=== PATIENT | male | born 1965 | race Caucasian/White ===

== ENCOUNTER 2021-12-03 03:06 | Outpatient (CLI) | payer OTHER, SELFPAY ==
[2021-12-03 08:03] LABS: HCT 43.4 % (40.0-50.0); HGB 14.4 g/dL (13.5-17.5); MCH 28.7 pg (27.0-33.0); MCHC 33.2 % (32.0-36.0); MCV 86.5 fL (80-95); Platelet Count 188 10^3/uL (130-400); RBC 5.02 10^6/uL (4.36-5.78); RDW 12.6 % (11.8-14.1); RDW-SD 40.1 fL; WBC 6.16 10^3/uL (4.4-10.8)
[2021-12-03 09:17] LABS: ALT 18 U/L (16-63); AST 13 U/L (15-37); Alkaline Phosphatase 119 U/L (46-116); BUN 21 mg/dL (7-18); Bilirubin, Total 0.5 mg/dL (0.2-1.0); Calculated LDL 107 mg/dL (<100); Chloride 105 mmol/L (98-107); Cholesterol 170 mg/dL (<200); Glucose 86 mg/dL (74-106); HDL Cholesterol 49 mg/dL (40-60); Magnesium 2.1 mg/dL (1.8-2.4); Potassium 3.9 mmol/L (3.5-5.1); Sodium 142 mmol/L (136-145); TSH (W/Ref FT4) 2.38 uIU/mL (0.36-3.74); Total Protein 7.5 g/dL (6.4-8.2); Triglyceride 72 mg/dL (<150)
[2021-12-03 21:45] LABS: PSA, Screening 0.7 ng/mL (<=3.5)
== END 2021-12-03 03:07 | disposition home or self-care (01) ==
LOC: LBO 03:06
PROVIDERS: PCP Nurse Practitioner; Visit Provider Family Medicine
DX: I10 Essential (primary) hypertension (principal); R00.2 Palpitations; G81.94 Hemiplegia, unspecified affecting left nondominant side; Z13.6 Encounter for screening for cardiovascular disorders; Z12.5 Encounter for screening for malignant neoplasm of prostate
CPT/HCPCS: 36415; 80053; 80061; 84153; 85027; 83735; 84443

== ENCOUNTER 2022-10-16 09:26 | Outpatient (RCR) | payer OTHER, SELFPAY ==
--- NOTE | 2022-10-16 09:30 | HOLTER_ITS ---
APPROVED REPORT Conclusion This is a 48-hour Holter monitor ordered for bradycardia Rhythm throughout was sinus with an average heart rate of 56. Minimum was 44, maximum 139 There were very rare isolated atrial and ventricular ectopic beats There was no atrial fibrillation, no SVT, no high-grade AV block, no pauses greater than 3 seconds
== END 2022-11-13 23:59 | disposition home or self-care (01) ==
LOC: CARDOPNVT 09:26
PROVIDERS: PCP Nurse Practitioner Family; Visit Provider Surgery
DX: R00.1 Bradycardia, unspecified (principal)
CPT/HCPCS: 93225; 93226

== ENCOUNTER 2022-11-06 10:16 | Day surgery (SDC) | payer OTHER, SELFPAY ==
--- NOTE | 2022-11-05 22:04 | PDOC.DSDIS_ITS ---
Date of service: 11/06/22 Time of Service: 13:27 Discharge Plan Disposition Patient Disposition: Home Condition: Good Discharge Details Reason For Visit: Screening colonoscopy Attending Provider: Edd Caldwell Primary Care Provider: Malka Owens Home Meds and New Rx's Prescriptions: Continued magnesium 250 mg tablet 250 mg PO DAILY Qty: 1 0RF Eye Vitamin and Minerals 1 EACH tablet 1 tab PO DAILY Discontinued polyethylene glycol 3350 17 gram/dose powder 238 g PO ONCE Qty: 238 0RF Rx Instructions: take per colonoscopy instructions bisacodyl [Dulcolax (bisacodyl)] 5 mg tablet,delayed release (DR/EC) 5 mg PO ONCE Qty: 4 0RF Rx Instructions: take per colonoscopy instructions Discharge Instructions Additional Instructions: Gerardo, I was able to complete the colonscopy today without any difficulty. The quality of the prep was excellent. I did not see any abnormlaities. Please consider another colonoscopy in 10 years. 1. If tolerated, consume a soft, low fiber diet for 1-2 days. 2. Do not drive, drink alcohol, operate machinery, make critical decisions, or do activities that require coordination or balance for 24 hours. 3. Because air was put into your colon during the procedure, expelling air from your rectum (passing gas or farting) is normal. 4. You may not have a bowel movement for 1-3 days because of the colonoscopy prep. This is normal. 5. Go directly to the emergency room if you notice any of the following: Develop chills (warm to touch), or if you have a thermometer and your temperature is above 101 Difficulty breathing or difficultly swallowing Persistent vomiting Severe abdominal pain, other than gas cramps Severe chest pain Black, tarry stools Any bleeding ? exceeding one tablespoon 6. Call your physician if the site where your intravenous was started becomes red, swollen, painful, and warm to touch. 7. Your physician has reviewed your pre-procedure medications. Please continue t o take those medications as previously ordered. You will be given specific information/education regarding any changes to your medications before leaving. Activity:: Activity as Tolerated Diet:: As Tolerated Discharge Orders Discharge Orders: Discharge Order (Routine); Ordered 11/05/22 Ordered By: Edd Caldwell DS: Diagnosis Discharge Diagnosis (1) Screening for colon cancer: Status: Acute Asessment and Plan: Normal colonoscopy today. Next screening colonoscopy in 10 years
--- NOTE | 2022-11-05 22:06 | W.PM.OP ---
Date of service: 11/06/22 Time of Service: 13:29 Operative Note Operative Note DATE OF PROCEDURE: 11/06/22 PRE-OP DIAGNOSIS: Screening colonoscopy Refer to Anesthesia Record
[2022-11-06 10:45] VITALS: BP 136/93; PULSE 55; RESP 18; TEMP 36.4; O2SAT 98
[2022-11-06] MEDS: Lactated Ringers 1,000 ML 80 ML IV (11:20)
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
[2022-11-06 13:30] VITALS: BP 109/61; PULSE 73; RESP 16; TEMP 36.2; O2SAT 97
--- NOTE | 2022-11-06 13:30 | W.COLOREPORT ---
Date of service: 11/06/22 Time of Service: 13:30 Colonoscopy Report Date of procedure: 11/06/22 Pre-op diagnosis general: Screening colonoscopy Post-op diagnosis procedure note: same Procedure: Colonoscopy Surgeon: Edd Caldwell Anesthesia Type: General:No Airway Estimated blood loss (mL): 0 Pathology: none sent Complications: None Disposition: same day Indications: Gerardo is a 57 year old man here for his first screening colonoscopy Prep: Miralax/Dulcolax Procedure Start Time: 13:00 Procedure End Time: 13:17 Retraction Time: 10 Findings: Normal colonoscopy Procedure Description: After the induction of monitored anesthetic care, and with the patient in left lateral decubitus position, I began by performing an external anorectal exam.? Perineum and skin were normal, as was the anal verge.? There was no evidence of external hemorrhoids.? Next, I performed a digital rectal exam.? I did not appreciate any abnormal findings.? Next, I advanced a colonoscope into the rectal vault.? I performed retroflexion.? This appeared normal.? Using insufflation, I then advanced the colonoscope beyond the rectal folds and into the sigmoid colon before advancing towards the cecum.? The quality of the prep was excellent.? The scope was noted to be in the cecum by identification of the ileocecal valve and appendiceal orifice.? I then began withdrawing the colonoscope using repeated irrigation as necessary for full evaluation of the colonic mucosa. ?Once the scope was withdrawn to the level of the rectum, great care was taken to examine portions of the rectal folds.?I did not see any evidence of tumors or polyps. Finally, the scope was withdrawn and the patient was brought to the same-day surgery recovery unit as the anesthetic wore off. ?The findings and instructions were shared with the patient prior to discharge.
[2022-11-06 13:32] VITALS: BMI 22.0
[2022-11-06 14:05] VITALS: BP 126/77; PULSE 52; RESP 16; TEMP 36.4; O2SAT 97
--- NOTE | 2022-11-06 15:44 | W.ANESPOSTOP ---
Postoperative Evaluation Date, Time and Location Date Performed: 11/06/22 Time Performed: 15:44 Patient Location: Day Surgery Unit Vital Signs Most Recent Imported Vital Signs: Most Recent Vital Signs Temp Pulse Resp BP Pulse Ox 36.4 C L 52 L 16 126/77 97 11/06/22 14:05 11/06/22 14:05 11/06/22 14:05 11/06/22 14:05 11/06/22 14:05 Pain Score Most Recent Pain Score: Most Recent Pain Score Pain Level 0 11/06/22 14:05 Assessment Mental Status: Awake (Alert & Oriented to Patient Baseline) Airway and Respiratory Function: Patent airway with normal (patient baseline) respiratory exam Cardiovascular Function: Hemodynamically Stable Hydration Status: Adequately Hydrated Nausea & Vomiting: No Nausea or Vomiting Pain: Pt. Denies Any Pain Peripheral Nerve Block: Patient did not receive a nerve block Postoperative Comments:: Seen earlier today, all questions answered and doing well.
== END 2022-11-06 14:22 | disposition home or self-care (01) ==
PROVIDERS: PCP Nurse Practitioner Family; Visit Provider Surgery
PROC: 0DJD8ZZ Inspection of Lower Intestinal Tract, Via Natural or Artificial Opening Endoscopic (ICD-10-PCS; CPT 45378; principal; 2022-11-06 11:30)
DX: Z12.11 Encounter for screening for malignant neoplasm of colon (principal)
CPT/HCPCS: 45378

== ENCOUNTER 2024-03-03 01:08 | Outpatient (CLI) | payer OTHER, SELFPAY ==
--- OUTSIDE RECORDS SUMMARY | 2024-03-03 01:12 | XMS_ITS | Encounter Summary ---
Author Organization [facility] Address [facility] [place] [address] Care Team Providers Care Internet Designer Name Role Phone Barron Varma DO Primary Care Provider Encounter Details Date Type Department Care Team (Late st Contact Info) Description 10/12/2016 Ancillary Procedure [place] [id number] Barron Varma DO [address] [place] [address] Social History Tobacco Use Types Packs/Day Years Used Date Smoking Tobacco: Never Assessed Sex and Gender Information Value Date Recorded Sex Assigned at Not on file Gender Identity Not on file Sexual Orientation Not on file documented as of this encounter Plan of Treatment Not on file documented as of this encounter Procedures Procedure Name Priority Date/Time Associated Diagnosis Comments FILM LIBRARY STORAGE ONLY DX WRIST Routine 10/12/2016 12:00 AM EST documented in this encounter Results * Film Library- Storage Only DX Wrist (10/12/2016 12:00 AM EST) Narrative KOURTNEY - 11/01/2018 10:30 AM EDT This exam is auto-finalizing. It's purpose is for storage only. Barron Varma DO IMG FILM LIBRARY ORD ERABLES [place], [place] documented in this encounter Visit Diagnoses Not on filedocumented in this encounter Care Teams Internet Designer Relationship Specialty Start Date End Date Barron Varma DO [address] [place] [address] PCP - General 07/08/10 12/23/22 documented as of this encounter
--- OUTSIDE RECORDS SUMMARY | 2024-03-03 01:12 | XMS_ITS | Encounter Summary ---
Author Organization [facility] [place] [address] Care Team Providers Care Clinical Education Manager Name Role Phone Barron Varma DO Primary Care Provider Encounter Details Date Type Department Care Team (Late st Contact Info) Description 02/02/2018 Ancillary Procedure [place] [phone] Barron Varma DO [address] [place] [address] Social History Tobacco Use Types Packs/Day Years [...] FILM LIBRARY STORAGE ONLY DX WRIST Routine 02/02/2018 12:00 AM EDT documented in this encounter Results * Film Library- Storage Only DX Wrist (02/02/2018 12:00 AM EDT) Narrative KOURTNEY - 11/01/2018 10:31 AM EDT This exam is auto-finalizing. It's purpose is for storage only. Barron Varma DO IMG FILM LIBRARY ORD ERABLES [place], [place] documented in this encounter Visit Diagnoses Not on filedocumented in this encounter Care Teams Clinical Education Manager Relationship Specialty Start Date End Date Barron aVrma DO [address] [place] [address] PCP - General 07/08/10 12/23/22 documented as of this encounter
--- OUTSIDE RECORDS SUMMARY | 2024-03-03 01:12 | XMS_ITS | Encounter Summary ---
Author Organization [facility] [place] [address] Care Team Providers Care Ticket Chopper Assembler Name Role Phone Barron Varma DO Primary Care Provider [phone] Encounter Details Date Type Department Care Team (Late st Contact Info) Description 02/02/2018 12:05 AM EDT Ancillary Procedure [place] [phone] Barron Varma DO [address] [place] [address] Social History Tobacco Use Types Packs/Day Years [...] Diagnosis Comments FILM LIBRARY STORAGE ONLY DX HAND Routine 02/02/2018 12:05 AM EDT documented in this encounter Results * Film Library- Storage Only DX Hand (02/02/2018 12:05 AM EDT) Narrative KOURTNEY - 11/01/2018 10:32 AM EDT This exam is auto-finalizing. It's purpose is for storage only. Barron Varma DO IMG FILM LIBRARY ORD ERABLES [place], [place] documented in this encounter Visit Diagnoses Not on filedocumented in this encounter Care Teams Ticket Chopper Assembler Relationship Specialty Start Date End Date Barron Varma DO [address] [place] [address] PCP - General 07/08/10 12/23/22 documented as of this encounter
--- OUTSIDE RECORDS SUMMARY | 2024-03-03 01:12 | XMS_ITS | Encounter Summary ---
Author Organization [facility] [place] [address] Care Team Providers Care Research/Program Director Name Role Phone Malka Owens APRN Primary Care Provider [phone] Reason for Referral * Consultation (Routine) - Canceled Specialty Diagnoses / Procedures Referred By Cait t Referred To Contact Dermatology Diagnoses Viral warts, unspecified type Malka Owens APRN [address] [place] [address] [facility] Dermatology [address] [place] [address] Referral ID Status Reason Start Date Expiration Date Visits Requested Visits Authorized [id number] Canceled Consult, Test & Treat PCP Updated and/or Approved 12/28/2022 12/28/2023 6 6 Encounter Details Date Type Department Care Team (Late st Contact Info) Description 12/28/2022 Transcribe Orders eDH Incoming Referrals [phone] Malka Owens APRN [address] [place] [address] Viral warts, unspecified type Social History Tobacco Use Types Packs/Day Years Used Date Smoking Tobacco: Never Smokeless Tobacco: Never Alcohol Use Standard Drinks/Week Comments Yes 0 (1 standard drink = 0.6 oz pur e alcohol) 12 pack a year Sex and Gender Information Value Date Recorded Sex Assigned at Not on file Gender Identity Not on file Sexual Orientation Not on file documented as of this encounter Plan of Treatment Scheduled Referrals Name Type Priority Associated Diagnoses Orde r Schedule Referral to Dermatology Outpatient Referral Routine Viral warts, unspecified type Ordered: 12/28/2022 documented as of this encounter Visit Diagnoses Diagnosis Viral warts, unspecified type documented in this encounter Care Teams Research/Program Director Relationship Specialty Start Date End Date Graciela, Malka Bent[place] APRN [address] [facility] [place] [address] PCP - General Internal Medicine 12/24/22 documented as of this encounter
--- OUTSIDE RECORDS SUMMARY | 2024-03-03 01:12 | XMS_ITS | Referral Summary ---
Author Organization [facility] Address [address] [place] [address] Care Team Providers Care Family Consumer Scientist Name Role Phone Unavailable Primary Care Provider Unavailabl e Social History Tobacco Use Types Packs/Day Years Used Date Smoking Tobacco: Never Assessed Sex and Gender Information Value Date Recorded Sex Assigned at Not on file Gender Identity Not on file Sexual Orientation Not on file Plan of Treatment Not on file
--- OUTSIDE RECORDS SUMMARY | 2024-03-03 01:12 | XMS_ITS | Encounter Summary ---
Author Organization [facility] Address [address] [place] [address] Care Team Providers Care Asparagus Buncher Name Role Phone Unavailable Primary Care Provider Unavailabl e Encounter Details Date Type Department Care Team (Late st Contact Info) Description 12/03/2021 Lab Requisition [facility] Pathology & Laboratory Medicine - [facility] [address] [place], [place] [id number] Outr Resulting Lab, Provider Social History Tobacco Use Types Packs/Day Years Used Date Smoking Tobacco: Never Assessed Sex and Gender Information Value Date Recorded Sex Assigned at Not on file Gender Identity Not on file Sexual Orientation Not on file documented as of this encounter Plan of Treatment Not on file documented as of this encounter Procedures Procedure Name Priority Date/Time Associated Diagnosis Comments PSA TOTAL, DIAGNOSTIC Routine 12/03/2021 7:54 EDT documented in this encounter Results * PSA TOTAL, DIAGNOSTIC (12/03/2021 7:54 EDT) PSA 0.7 <=3.5 ng/mL 12/03/2021 21:40 EDT [facility] Blood VENOUS BLOOD / Unknown 12/03/2021 7:54 EDT 12/03/2021 16:35 EDT Narrative [facility] - 12/03/2021 21:40 EDT NOTE: Serum PSA concentration should not be interpreted as absolute evidence for the presence or absence of malignant disease. Assayed on Siemens ADVIA Centaur XPT using chemiluminescent technology.??Values obtained by using different assay methods cannot be used interchangeably. Provider Outr Resulting Lab CHEMISTRY & BLOOD GAS ORDERABLES [facility] [address] [place] [address] documented in this encounter Visit Diagnoses Not on filedocumented in this encounter
--- OUTSIDE RECORDS SUMMARY | 2024-03-03 01:12 | XMS_ITS | Clinical Summary ---
Author Organization [facility] Address [address] [place] [address] Care Team Providers Care Single Ending Machine Operator Name Role Phone Unavailable Primary Care Provider Unavailabl e Social History Tobacco Use Types Packs/Day Years Used Date Smoking Tobacco: Never Assessed Sex and Gender Information Value Date Recorded Sex Assigned at Not on file Gender Identity Not on file Sexual Orientation Not on file Plan of Treatment Health Maintenance Due Date Last Done Comments Hepatitis C Screen 1965 Hepatitis B Vaccine (1 of 3 - 19+ 3-dose series) 05/16 COVID-19 Vaccine (2022-24 season) 2023
--- OUTSIDE RECORDS SUMMARY | 2024-03-03 01:12 | XMS_ITS | Encounter Summary ---
Author Organization [facility] [place] [address] Care Team Providers Care Servomechanism Assembler Name Role Phone Malka Owens APRN Primary Care Provider [phone] Reason for Referral * Consultation (Priority 3) - Closed Specialty Diagnoses / Procedures Referred By Contisiah t Referred To Contact Dermatology Diagnoses Viral warts, unspecified type wart of R hand Malka Owens APRN [address] [place] [address] [facility] Dermatology [address] [place] [address] Referral ID Status Reason Start Date Expiration Date V isits Requested Visits Authorized [id number] Closed Consult, Test & Treat PCP Updated and/or Approved 12/24/2022 12/24/2023 6 6 Encounter Details Date Type Department Care Team (Late st Contact Info) Description 12/24/2022 Transcribe Orders eDH Incoming Referrals [phone] Malka Owens APRN [address] [place] [address] Viral warts, unspecified type Social [...] Referral Routine Viral warts, unspecified type Ordered: 12/24/2022 documented as of this encounter Visit Diagnoses Diagnosis Viral warts, unspecified type documented in this encounter Care Teams Servomechanism Assembler Relationship Specialty Start Date End Date Graciela, Malka [place] APRN [address] [place] [address] PCP - General Internal Medicine 12/24/22 documented as of this encounter
--- OUTSIDE RECORDS SUMMARY | 2024-03-03 01:12 | XMS_ITS | Encounter Summary ---
Author Organization [facility] Address [facility] [address] [address] Care Team Providers Care Engine Setter Name Role Phone Barron Varma DO Primary Care Provider [phone] Encounter Details Date Type Department Care Team (Latest Contact Info) Description 01/04/2019 12:15 PM EDT - 01/04/2019 11:59 PM EDT Hospital Encounter XRay at [address] [place] [address] Fer Golden MD [facility] [place] [address] Right wrist pain Discharge Disposition: Home Social History Tobacco Use Types Packs/Day Years Used Date Smoking Tobacco: Never Smokeless Tobacco: Never Alcohol Use Standard Drinks/Week Comments Yes 0 (1 standard drink = 0.6 oz pur e alcohol) 12 pack a year Sex and Gender Information Value Date Recorded Sex Assigned at Not on file Gender Identity Not on file Sexual Orientation Not on file documented as of this encounter Medications at Time of Discharge Medication Sig Dispensed Refills Start Date End Date vit C/E/Zn/coppr/lutein/zeaxan (PRESERVISION AREDS-2 ORAL) Take by mouth. multivitamin (THERAGRAN) tablet 8 OMEGA-3 FATTY ACIDS-FISH OIL ORAL 08/29/2007 documented as of this encounter Plan of Treatment Not on file documented as of this encounter Procedures Procedure Name Priority Date/Time Associated Diagnosis Comments XR WRIST 3 VIEWS RIGHT Routine 01/04/2019 12:26 PM EDT Right wrist pain documented in this encounter Results * XR Wrist Complete Min 3 views Right (Generic) (01/04/2019 12:26 PM EDT) Anatomical Region Laterality Modality Right Digital Radiogra phy Impressions 01/04/2019 4:00 PM EDT Mild osteoarthritis of the wrist. Thank you for letting us participate in the care of this patient. For questions regarding this report, please contact the number below. ? Electronically signed by: SERGEY Garrett [facility] ([phone]), at 01/04/2019 4:00 PM Narrative 01/04/2019 4:00 PM EDT EXAMINATION: XR WRIST COMPLETE MIN 3 VIEWS RIGHT (GENERIC) CLINICAL HISTORY: chronic right wrist pain TECHNIQUE: PA, oblique, lateral and scaphoid of the right wrist. COMPARISON: None FINDINGS: There is no fracture or dislocation. Small osteophytes are present at the triscaphe joint. There is mild narrowing of the first carpal metacarpal joint. Procedure Note Jose Stephenson MD - 01/04/2019 EXAMINATION: XR WRIST COMPLETE MIN 3 VIEWS RIGHT (GENERIC) CLINICAL HISTORY: chronic right wrist pain TECHNIQUE: PA, oblique, lateral and scaphoid of the right wrist. COMPARISON: None FINDINGS: There is no fracture or dislocation. Small osteophytes are present at the triscaphe joint. There is mildnarrowing of the first carpal metacarpal joint. IMPRESSION Mild osteoarthritis of the wrist. Thank you for letting us participate in the care of this patient. Forquestions regarding this report, please contact the number below. Electronically signed by: SERGEY Garrett [facility]([phone]), at 01/04/2019 4:00 PM Fer Golden MD IMG DX ORDERABLES documented in this encounter Visit Diagnoses Diagnosis Right wrist pain Pain in joint, forearm documented in this encounter Care Teams Engine Setter Relationship Specialty Start Date End Date Barron Varma DO [address] [place] [address] PCP - General 07/08/10 12/23/22 documented as of this encounter
--- OUTSIDE RECORDS SUMMARY | 2024-03-03 01:12 | XMS_ITS | Encounter Summary ---
Author Organization Formerly [facility] Address [facility] [place] [address] Care Team Providers Care Independent Beauty Consultant Name Role Phone Barron Varma DO Primary Care Provider [phone] Reason for Visit * Reason Comments Right Wrist Pain * Consultation (Routine) - Closed Specialty Diagnoses / Procedures Referred By Contisiah t Referred To Contact Orthopaedics Diagnoses RT WRIST PAIN Barron Varma DO [address] [place] [address] Fer Golden MD [facility] [place] [address] Referral ID Status Reason Start Date Expiration Date V isits Requested Visits Authorized [id number] Closed Consult, [facility] & [facility] 11/02/2018 11/02/2019 1 1 Encounter Details Date Type Department Care Team (Late st Contact Info) Description 01/04/2019 2:00 PM EDT Office Visit [place] [address] Fer Golden MD [facility] [place] [address] Pain in right wrist Social History Tobacco Use Types Packs/Day Years Used Date Smoking Tobacco: Never Smokeless Tobacco: Never Alcohol Use Standard Drinks/Week Comments Yes 0 (1 standard drink = 0.6 oz pur e alcohol) 12 pack a year Sex and Gender Information Value Date Recorded Sex Assigned at Not on file Gender Identity Not on file Sexual Orientation Not on file documented as of this encounter Last Filed Vital Signs Vital Sign Reading Time Taken Comments Blood Pressure 145/86 01/04/2019 1:16 PM EDT Pulse 55 01/04/2019 1:16 PM EDT Temperature - - Respiratory Rate - - Oxygen Saturation - - Inhaled Oxygen Concentration - - Weight - - Height - - Body Mass Index - - documented in this encounter Progress Notes * Luis Eduardo Jacobs PA - 01/04/2019 2:00 PM EDT PATIENT NAME: Gerardo Montesinos AGE: 53 y.o. MR#: [id number] DATE OF VISIT: 01/04/2019 DATE OF INJURY/ONSET: 2 years STAFF: Dr. Golden CHIEF COMPLAINT: Right wrist pain HISTORY OF PRESENT ILLNESS: Mr. Montesinos is a right hand dominant 53 y.o. male who comes into clinictoday for evaluation of right wrist pain. This began after a FOOSH 2 years ago in which he fell in a parking lot. Patient was evaluated at [facility] and was not found to have an acute fracture. He subsequently developed pain and stiffness and later underwent what he believes is a synovectomy of the ECU b y Dr. Lynch. He was compliant with attending therapy after this procedure and will take Aleve as needed. The patient has had continued pain that is both dorsal and volar mostly over the STT joint. This is made worse with lifting and rotating movement such as shoveling snow. Mr. Montesinos denies any numbness or tingling. Medications and Allergies were reviewed in eD-[facility] PAST MEDICAL HX: History reviewed. No pertinent past medical history. PAST SURGICAL HX: History reviewed. No pertinent surgical history. SOCIAL HX: Social History Occupational History ??? Not on file Tobacco Use ??? Smoking status: Never Smoker ??? Smokeless tobacco: Never Used Substance and Sexual Activity ??? Alcohol use: Yes Comment: 12 pack a year ??? Drug use: Not Currently ??? 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 General Health, Prior Treatments, PreExisting Condition, Health Habits, About You 01/04/2019 PROMIS-10 General Health Very Good PROMIS-10 Quality of Life Good PROMIS-10 Physical Health Very Good PROMIS-10 Mental Health Good PROMIS-10 Social Activity Good PROMIS-10 Everyday Activities Mostly PROMIS-10 Pain 3 PROMIS-10 Fatigue Mild PROMIS-10 Social Roles Good PROMIS-10 Anxious or Depressed Rarely PROMIS PHYSICAL SCORE (range 16-68) 50.8 PROMIS MENTAL SCORE (range 21-68) 45.8 Treatments Tried Physical therapy, Over the counter anti-inflammatory drugs (e.g Advil, Aspirin, Aleve), Prior surgery for this problem Alzheimers or dementia No Cirrohosis or liver disease No HIV/AIDS No Pain in more than one joint in legs No Back or neck pain No Heart attack No Heart failure No Unclog/bypass leg arteries No Stroke, blood clot, TIA No Asthma No Emphysema, chronic bronchities, or COPD No Stomach ulcers/peptic ulcer disease No Diabetes No Poor kidney function No Rheumatic condtions No Cancer No Weight (lbs) 151 Height (feet) 5 feet Height (Inches) 8 BMI 22.95 (Normal) Ever used tobacco products No Ever used alcoholic beverages Yes Alcohol frequency Once or twice WHO - Alcohol Advice 2 (You are at low risk of health and other problems from your current pattern of use.) Live Alone No Marital situation Single (never ) Schooling 4 - year college # People Supported 2 Peruvian, , No, not Peruvian// Race White Health Literacy Quite a bit Currently working Yes Current job situation Full-time PHYSICAL EXAM: Mr. Montesinos is a 53 y.o. male who is alert, appears stated age and cooperative. Inspection: There is an area of swelling most prominent over the MCP joint of the right long finger. This is not erythematous or warm to touch. Palpation: He has point tenderness over the FCR, the dorsal and volar aspect of the wrist corresponding with the STT joint. ROM/Strength: Wrist flexion-30 degrees Wrist extension- 50 degrees Orthopedic testing: Yost-negative Neurovascular: Sensation and motor function are in tact along the median, ulnar, and radial nerve roots. His hand is well perfused, distal radial pulse 2+. DIAGNOSTIC STUDIES: X-rays from today were personally reviewed and demonstrate basal joint and STT arthritis. There is no evidence of fracture or dislocation. ASSESSMENT: Mr. Montesinos presents with 2 years of right wrist pain after a FOOSH. He underwent synovectomy of what is likely his ECU, but continued to have pain and decreased ROM. On exam, he does have some swelling over the MCP joint of his right long finger that is non-erythematous or warm to touch. His ROM is decreased to 30 flexion and 50 extension. Xrays from today were reviewed and demonstrate both basal joint and STT arthritis. We discussed that he can continue to treat this conservatively with splinting, topicals and occasional Tylenol. He also may like to proceed with a cortisone injection into the STT joint as this is his most prominent area of pain on exam and confirmed with x-rays. Lastly it may be reasonable to obtain an MRI to evaluate further and look for other pathology maybe contributing to his pain. The patient elected to proceed with a fluoroscopy guided cortisone injection of the right wrist over the STT joint with the understanding of the risks including infectionbleeding nerve tendon or vessel injury steroid flare increase in blood sugars, skin discoloration and recurrence of pain. He will be called radiology to have this scheduled. PLAN: Fluoro-guided injection into the STT joint of the right wrist. He will return for follow up if he does get adequate pain relief with a cortisone injection. At this point, he may request gettinga right wrist MRI as we discussed. The patient understands to contact us if they have any other ques tions or concerns. I saw Mr. Montesinos with Dr. Golden who agrees with this plan. The above documentation was completed using [employer] voice recognition software. documented in this encounter Plan of Treatment Not on file documented as of this encounter Visit Diagnoses Diagnosis Pain in right wrist Pain in joint, forearm documented in this encounter Care Teams Independent Beauty Consultant Relationship Specialty Start Date End Date Barron Varma DO [address] [place] [address] PCP - General 07/08/10 12/23/22 documented as of this encounter
--- OUTSIDE RECORDS SUMMARY | 2024-03-03 01:12 | XMS_ITS | Clinical Summary ---
Author Organization Formerly [facility] [place] [address] Care Team Providers Care Statistical Analyst Name Role Phone GracielaMalka APRN Primary Care Provider [phone] Allergies No known active allergies Medications Medication Sig Dispensed Refills Start Date End Date Status multivitamin (THERAGRAN) tablet 08/29/2007 Active OMEGA-3 FATTY ACIDS-FISH OIL ORAL 08/29/2007 Active vit C/E/Zn/coppr/lutein/zeaxa n (PRESERVISION AREDS-2 ORAL) Take by mouth. Active Active Problems No known active problems Immunizations Name Administration Dates Next Due TD Adult 03/07/2004 Social History Tobacco Use Types Packs/Day Years Used Date Smoking Tobacco: Never Smokeless Tobacco: Never Alcohol Use Standard Drinks/Week Comments Yes 0 (1 standard drink = 0.6 oz pur e alcohol) 12 pack a year Sex and Gender Information Value Date Recorded Sex Assigned at Not on file Gender Identity Not on file Sexual Orientation Not on file Last Filed Vital Signs Vital Sign Reading Time Taken Comments Blood Pressure 145/86 01/04/2019 1:16 PM EDT Pulse 55 01/04/2019 1:16 PM EDT Temperature - - Respiratory Rate - - Oxygen Saturation - - Inhaled Oxygen Concentration - - Weight - - Height - - Body Mass Index - - Plan of Treatment Health Maintenance Due Date Last Done Comments CT Colonography 1967 Colonoscopy 1967 Colorectal Cancer Screening 1967 FIT DNA 1967 FIT 1967 Sigmoidoscopy (10 year) with FIT yearly 1967 Sigmoidoscopy 1967 HIV screen 1985 Hepatitis C Screening 1985 Lipid Screening 1985 Hepatitis B vaccine (0-59 yrs) (1) 1986 Tdap adult 1986 Tetanus vaccine 03/07/2014 03/07/2004 Zoster vaccine (1 of 2) 2017 Advance Directive 2022 Covid-19 Vaccine (1 - 2022- season) 2023 Influenza (Flu) vaccine (1 o f 1 - Influenza standard series) 04/16/2024 Care Teams Statistical Analyst Relationship Specialty Start Date End Date Graciela, Malka Bentley APRN [address] [place], [place] [id number] PCP - General Internal Medicine 12/24/22
[2024-03-03 12:41] LABS: Anion Gap 7.6 mmol/L (3-11); BUN 22 mg/dL (7-18); CO2 29.4 mmol/L (21.0-32.0); CREATININE 1.1 mg/dL (0.70-1.30); Calcium 9.1 mg/dL (8.5-10.1); Calculated LDL 111 mg/dL (<100); Chloride 105 mmol/L (98-107); Cholesterol 171 mg/dL (<200); Estimated GFR 78.79 (mL/min/1.73m2); Glucose 95 mg/dL (74-106); HDL Cholesterol 47 mg/dL (40-60); Potassium 4.1 mmol/L (3.5-5.1); Sodium 142 mmol/L (136-145); Triglyceride 68 mg/dL (<150)
== END 2024-03-03 01:09 | disposition home or self-care (01) ==
LOC: LOS 01:11
PROVIDERS: PCP Nurse Practitioner Family; Visit Provider Nurse Practitioner Family
DX: Z00.00 Encounter for general adult medical examination without abnormal findings (principal); R06.83 Snoring; Z82.49 Family history of ischemic heart disease and other diseases of the circulatory system
CPT/HCPCS: 36415; 80048; 80061

== ENCOUNTER 2025-03-05 10:47 | Outpatient (CLI) | payer OTHER, SELFPAY ==
[2025-03-05 12:47] LABS: ALT 33 U/L (16-63); AST 19 U/L (15-37); Albumin 3.9 g/dL (3.4-5.0); Alkaline Phosphatase 111 U/L (46-116); Anion Gap 5.6 mmol/L (3-11); BUN 30 mg/dL (7-18); Bilirubin, Total 0.4 mg/dL (0.2-1.0); CO2 30.4 mmol/L (21.0-32.0); Calcium 9.4 mg/dL (8.5-10.1); Calculated LDL 88 mg/dL (<100); Chloride 103 mmol/L (98-107); Cholesterol 146 mg/dL (<200); Estimated GFR 87.78 (mL/min/1.73m2); Glucose 90 mg/dL (74-106); HDL Cholesterol 46 mg/dL (>or=40); Potassium 4.0 mmol/L (3.5-5.1); Sodium 139 mmol/L (136-145); Total Protein 7.9 g/dL (6.4-8.2); Triglyceride 64 mg/dL (<150)
[2025-03-05 18:11] LABS: PSA, Screening 2.7 ng/mL (<=3.5)
[2025-03-05 18:45] LABS: Hepatitis C Ab w Rflx HCV PCR Negative (Negative)
[2025-03-05 18:56] LABS: HIV-1/2 Ag & Ab Screen Negative (Negative)
== END 2025-03-05 10:48 | disposition home or self-care (01) ==
LOC: LOS 10:47
PROVIDERS: PCP Nurse Practitioner Family; Referring Provider Nurse Practitioner Family; Visit Provider Nurse Practitioner Family
DX: Z00.00 Encounter for general adult medical examination without abnormal findings (principal); Z12.5 Encounter for screening for malignant neoplasm of prostate
CPT/HCPCS: 36415; 80053; 80061; 84153; 86803; 87389